=== PATIENT | female | born 1985 | race Asian ===

== ENCOUNTER 2020-11-25 09:12 | Inpatient (IN) | payer MEDICARE, MEDICAID ==
[~2020-11-25] VITALS: Ht 165.1 cm; Wt 86.2 kg
[2020-11-25 10:14] LABS: BASOPHILS % (AUTO) 0.9 % (0.0-2.0); HEMATOCRIT 33.7 % (36-46); HEMOGLOBIN 11.1 g/dL (12.0-16.0); LYMPHOCYTES # (AUTO) 3.1 K/uL (1.0-4.8); LYMPHOCYTES % (AUTO) 25.8 % (22.0-44.0); MEAN CORPUSCULAR HGB CONC 32.9 G/dL (31.0-37.0); MEAN CORPUSCULAR VOLUME 91 fL (80-100); MONOCYTES # (AUTO) 0.8 K/uL (0.1-1.0); MONOCYTES % (AUTO) 6.9 % (2.0-9.0); NEUTROPHILS # (AUTO) 6.8 K/uL (1.8-7.7); NEUTROPHILS % (AUTO) 56.4 % (40.0-70.0); PLATELET COUNT (AUTO) 362 K/uL (150-450); RED CELL DISTRIBUTION WIDTH 13.4 % (11.5-14.5)
[2020-11-25 10:41] LABS: ANION GAP 6 mmol/L (8-16); CARBON DIOXIDE 28 mmol/L (22-29); CHLORIDE 107 mmol/L (98-107); CREATININE 0.56 mg/dL (0.60-1.30); GLUCOSE,RANDOM 132 mg/dL (70-110); POTASSIUM 3.2 mmol/L (3.5-5.1); SODIUM SERUM 141 mmol/L (136-145); UREA NITROGEN, BLOOD 8 mg/dL (7-18)
[2020-11-25 10:44] LABS: ALANINE AMINOTRANSFERASE 18 U/L (12-78); ALBUMIN 2.9 g/dL (3.4-5.0); ALKALINE PHOSPHATASE 67 U/L (46-116); ASPARTATE AMINOTRANSFERASE 18 U/L (15-37); BILIRUBIN,TOTAL 0.2 mg/dL (0.1-1.0); GLOMERULAR FILTR. RATE CALC > 60 mL/min (>60); TOTAL PROTEIN, SERUM 7.2 g/dL (6.4-8.2)
[2020-11-25] MEDS ORDERED: POTASSIUM CHLORIDE 10% 40 MEQ/30 ML LIQUID UDCUP PO ONE (11:00)
[2020-11-25] MEDS ORDERED: ZOLPIDEM TARTRATE 10 MG TABLET PO PRN (12:15)
[2020-11-25] MEDS ORDERED: DiphenhydrAMINE HCL 50 MG/ML VIAL IM ONE (12:30)
[2020-11-25] MEDS ORDERED: IVERMECTIN 3 MG TABLET PO ONE (12:30)
[2020-11-25] MEDS ORDERED: HALOPERIDOL LACTATE 5 MG/ML VIAL IM ONE ×2 (12:30→15:30)
[2020-11-25] MEDS ORDERED: LORazepam 2 MG/ML VIAL IM ONE ×2 (12:30→15:30)
[2020-11-25 14:29] LABS: COVID AG,FIA SOURCE NASAL SWAB
[2020-11-25] MEDS ORDERED: PERMETHRIN 1% 60 ML LOTION TP ONE (15:30)
[2020-11-25] MEDS ORDERED: PERMETHRIN 5% 60 GM CREAM TP ONE (15:30)
[2020-11-26 01:41] LABS: CHOLESTEROL 121 mg/dL (131-200); HDL CHOLESTEROL 40 mg/dL (40-60); LDL CHOL (CALC.) 68 mg/dL (0-130); TRIGLYCERIDES 65 mg/dL (15-150)
[2020-11-26] MEDS: HALOPERIDOL 5 MG TABLET PO PRN (09:25)
[2020-11-26] MEDS: LORazepam 2 MG TABLET PO PRN (09:25)
[2020-11-26] MEDS ORDERED: PERMETHRIN 5% 60 GM CREAM TP ONE (14:15)
[2020-11-26] MEDS ORDERED: PERMETHRIN 1% 60 ML LOTION TP ONE (14:15)
[2020-11-26] MEDS ORDERED: HALOPERIDOL LACTATE 5 MG/ML VIAL IM ONE (14:15)
[2020-11-26] MEDS ORDERED: LORazepam 2 MG/ML VIAL IM ONE (14:15)
[2020-11-26] MEDS ORDERED: DiphenhydrAMINE HCL 50 MG/ML VIAL IM ONE (14:15)
[2020-11-26] MEDS ORDERED: ChlorproMAZINE HCL 50 MG/2 ML AMP IM ONE (16:00)
[2020-11-26 21:28] VITALS: BP 127/68
[2020-11-26] MEDS ORDERED: INFLUENZA VIRUS VACCINE QVS 2021-22 (6MO+)/PF 60 MCG/0.5 ML SYRINGE IM. ONE (21:45)
[2020-11-27] MEDS ORDERED: PETROLATUM,WHITE 28 GM JELLY TP PRN (06:45)
[2020-11-27] MEDS ORDERED: ONDANSETRON HCL 4 MG TABLET PO PRN (06:45)
[2020-11-27] MEDS ORDERED: MAG HYDROX/AL HYDROX/SIMETH ES 30 ML SUSPENSION UDCUP PO PRN (06:45)
[2020-11-27] MEDS ORDERED: ALBUTEROL SULFATE HFA 90 MCG/PUFF 8 GM INHALER IH PRN (06:45)
[2020-11-27] MEDS ORDERED: MAGNESIUM HYDROXIDE SUSPENSION 30 ML UDCUP PO PRN (06:45)
[2020-11-27] MEDS ORDERED: IBUPROFEN 400 MG TABLET PO PRN (06:45)
[2020-11-27] MEDS ORDERED: ACETAMINOPHEN 325 MG TABLET PO PRN (06:45)
[2020-11-27] MEDS ORDERED: GuaiFENesin/D-METHORPHAN [SUGAR-FREE] 200-20MG/10 ML SYRUP UDCUP PO PRN (06:45)
[2020-11-27] MEDS ORDERED: CloNIDine HCL 0.1 MG TABLET PO PRN (06:45)
[2020-11-27] MEDS ORDERED: LOPERAMIDE HCL 2 MG CAPSULE PO PRN (06:45)
[2020-11-27] MEDS ORDERED: DOCUSATE SODIUM 100 MG CAPSULE PO PRN (06:45)
[2020-11-27] MEDS ORDERED: NICOTINE 14 MG/24 HOUR PATCH TD PRN (06:45)
[2020-11-27] MEDS: LORazepam 2 MG TABLET PO PRN ×2 (10:10→16:49)
[2020-11-27] MEDS: HALOPERIDOL 5 MG TABLET PO PRN (10:10)
[2020-11-27] MEDS: OLANZapine 5 MG TABLET PO SCH ×2 (12:50→16:48)
[2020-11-28] MEDS: LORazepam 2 MG TABLET PO PRN ×3 (01:35→16:46)
[2020-11-28] MEDS: HALOPERIDOL 5 MG TABLET PO PRN ×3 (01:35→16:46)
[2020-11-28] MEDS: OLANZapine 5 MG TABLET PO SCH ×2 (08:27→16:46)
[2020-11-28 16:18] VITALS: BP 128/67
[2020-11-29 00:16] VITALS: BP 118/63
[2020-11-29] MEDS: LORazepam 2 MG TABLET PO PRN (08:22)
[2020-11-29] MEDS: OLANZapine 5 MG TABLET PO SCH (08:22)
[2020-11-29] MEDS: HALOPERIDOL 5 MG TABLET PO PRN (08:25)
[2020-11-29] MEDS: OLANZapine 10 MG TABLET PO SCH (17:06)
[2020-11-30 02:22] VITALS: BP 103/77
[2020-11-30 08:10] VITALS: BP 114/70
[2020-11-30 08:30] LABS: COVID AG,FIA SOURCE NASAL SWAB
[2020-11-30] MEDS: OLANZapine 10 MG TABLET PO SCH ×2 (08:59→16:24)
[2020-11-30] MEDS: LORazepam 2 MG TABLET PO PRN (10:03)
[2020-11-30] MEDS: HALOPERIDOL 5 MG TABLET PO PRN (10:03)
[2020-12-01 00:24] VITALS: BP 118/72
[2020-12-01] MEDS: OLANZapine 10 MG TABLET PO SCH ×3 (09:00→16:56)
[2020-12-01] MEDS: LORazepam 2 MG TABLET PO PRN (10:32)
[2020-12-01] MEDS: HALOPERIDOL 5 MG TABLET PO PRN (10:32)
[2020-12-02 00:02] VITALS: BP 110/66
[2020-12-02] MEDS: HALOPERIDOL 5 MG TABLET PO PRN ×3 (00:45→16:47)
[2020-12-02] MEDS: LORazepam 2 MG TABLET PO PRN ×3 (00:45→16:46)
[2020-12-02] MEDS: MULTIVITAMINS WITH IRON TABLET PO SCH (08:17)
[2020-12-02] MEDS: OLANZapine 10 MG TABLET PO SCH ×2 (08:17→16:46)
[2020-12-03 01:05] VITALS: BP 121/68
[2020-12-03] MEDS: OLANZapine 10 MG TABLET PO SCH ×2 (08:23→16:55)
[2020-12-03] MEDS: LORazepam 2 MG TABLET PO PRN ×2 (08:23→16:55)
[2020-12-03] MEDS: MULTIVITAMINS WITH IRON TABLET PO SCH (08:23)
[2020-12-03] MEDS: HALOPERIDOL 5 MG TABLET PO PRN (13:44)
[2020-12-04 00:31] VITALS: BP 119/72
[2020-12-04] MEDS: OLANZapine 10 MG TABLET PO SCH ×2 (08:17→16:06)
[2020-12-04] MEDS: MULTIVITAMINS WITH IRON TABLET PO SCH (08:17)
[2020-12-04 08:45] VITALS: BP 113/66
[2020-12-04] MEDS: LORazepam 2 MG TABLET PO PRN (09:52)
[2020-12-04] MEDS ORDERED: NICOTINE POLACRILEX 2 MG LOZENGE PO PRN (10:15)
[2020-12-05 02:16] VITALS: BP 130/72
[2020-12-05] MEDS: OLANZapine 10 MG TABLET PO SCH ×2 (08:49→16:20)
[2020-12-05] MEDS: MULTIVITAMINS WITH IRON TABLET PO SCH (08:49)
[2020-12-05] MEDS: LORazepam 2 MG TABLET PO PRN (08:49)
[2020-12-05 16:06] VITALS: BP 100/66
[2020-12-06 00:59] VITALS: BP 104/68
[2020-12-06 08:13] VITALS: BP 120/84
[2020-12-06] MEDS: OLANZapine 10 MG TABLET PO SCH ×2 (08:13→16:19)
[2020-12-06] MEDS: MULTIVITAMINS WITH IRON TABLET PO SCH (08:14)
[2020-12-06] MEDS: HALOPERIDOL 5 MG TABLET PO PRN (08:35)
[2020-12-06] MEDS: LORazepam 2 MG TABLET PO PRN (08:35)
[2020-12-07 01:22] VITALS: BP 114/76
[2020-12-07 08:03] LABS: COVID AG,FIA SOURCE NASAL SWAB
[2020-12-07] MEDS: OLANZapine 10 MG TABLET PO SCH ×2 (08:13→17:44)
[2020-12-07] MEDS: LORazepam 2 MG TABLET PO PRN (08:13)
[2020-12-07] MEDS: MULTIVITAMINS WITH IRON TABLET PO SCH (08:13)
[2020-12-07 08:31] VITALS: BP 118/71
[2020-12-07] MEDS: HALOPERIDOL 5 MG TABLET PO PRN (09:40)
[2020-12-07 16:01] VITALS: BP 154/81
[2020-12-08 01:05] VITALS: BP 116/66
[2020-12-08] MEDS: OLANZapine 10 MG TABLET PO SCH ×2 (09:07→16:15)
[2020-12-08] MEDS: MULTIVITAMINS WITH IRON TABLET PO SCH (09:07)
[2020-12-08] MEDS: LORazepam 2 MG TABLET PO PRN ×2 (09:07→16:15)
[2020-12-08] MEDS: HALOPERIDOL 5 MG TABLET PO PRN (16:15)
[2020-12-09 01:33] VITALS: BP 110/62
[2020-12-09 08:33] VITALS: BP 122/71
[2020-12-09] MEDS: LORazepam 2 MG TABLET PO PRN (08:58)
[2020-12-09] MEDS: OLANZapine 10 MG TABLET PO SCH ×2 (08:58→17:04)
[2020-12-09] MEDS: MULTIVITAMINS WITH IRON TABLET PO SCH (09:00)
[2020-12-09] MEDS: HALOPERIDOL 5 MG TABLET PO PRN (11:01)
[2020-12-09 16:02] VITALS: BP 121/76
[2020-12-10 00:26] VITALS: BP 116/70
[2020-12-10 07:27] LABS: CHOL/HDL RATIO 3.5 (3.9-5.7)
[2020-12-10] MEDS: MULTIVITAMINS WITH IRON TABLET PO SCH (08:09)
[2020-12-10] MEDS: OLANZapine 10 MG TABLET PO SCH ×2 (08:09→16:10)
[2020-12-10] MEDS: LORazepam 2 MG TABLET PO PRN ×2 (08:09→16:10)
[2020-12-10 08:29] VITALS: BP 112/63
[2020-12-10] MEDS: HALOPERIDOL 5 MG TABLET PO PRN ×2 (08:58→16:10)
[2020-12-10 16:12] VITALS: BP 128/79
[2020-12-11 00:21] VITALS: BP 118/72
[2020-12-11 08:18] VITALS: BP 110/66
[2020-12-11] MEDS: OLANZapine 10 MG TABLET PO SCH ×2 (08:32→16:02)
[2020-12-11] MEDS: MULTIVITAMINS WITH IRON TABLET PO SCH (08:32)
[2020-12-11] MEDS: LORazepam 2 MG TABLET PO PRN (09:06)
[2020-12-11] MEDS: HALOPERIDOL 5 MG TABLET PO PRN (09:37)
[2020-12-11 16:03] VITALS: BP 120/83
[2020-12-12 01:08] VITALS: BP 112/72
[2020-12-12 08:09] VITALS: BP 109/60
[2020-12-12] MEDS: MULTIVITAMINS WITH IRON TABLET PO SCH (09:40)
[2020-12-12] MEDS: OLANZapine 10 MG TABLET PO SCH ×2 (09:40→16:35)
[2020-12-12] MEDS: LORazepam 2 MG TABLET PO PRN (09:55)
[2020-12-12 16:06] VITALS: BP 109/66
[2020-12-13 01:40] VITALS: BP 114/78
[2020-12-13] MEDS: MULTIVITAMINS WITH IRON TABLET PO SCH (08:09)
[2020-12-13] MEDS: LORazepam 2 MG TABLET PO PRN ×2 (08:09→16:44)
[2020-12-13] MEDS: OLANZapine 10 MG TABLET PO SCH ×2 (08:09→16:44)
[2020-12-13 08:22] VITALS: BP 118/79
[2020-12-14 02:07] VITALS: BP 114/71
[2020-12-14 08:16] VITALS: BP 122/73
[2020-12-14] MEDS: MULTIVITAMINS WITH IRON TABLET PO SCH (08:19)
[2020-12-14] MEDS: OLANZapine 10 MG TABLET PO SCH ×2 (08:19→16:21)
[2020-12-14] MEDS: LORazepam 2 MG TABLET PO PRN (16:21)
[2020-12-14] MEDS: HALOPERIDOL 5 MG TABLET PO PRN (16:21)
[2020-12-15 01:00] VITALS: BP 122/64
[2020-12-15 08:15] VITALS: BP 116/63
[2020-12-15] MEDS: MULTIVITAMINS WITH IRON TABLET PO SCH (08:37)
[2020-12-15] MEDS: OLANZapine 10 MG TABLET PO SCH ×2 (08:37→17:02)
[2020-12-15] MEDS: LORazepam 2 MG TABLET PO PRN ×2 (13:57→18:28)
[2020-12-16 04:58] VITALS: BP 126/70
[2020-12-16] MEDS: MULTIVITAMINS WITH IRON TABLET PO SCH (08:44)
[2020-12-16] MEDS: OLANZapine 10 MG TABLET PO SCH ×2 (08:44→16:54)
[2020-12-16] MEDS: LORazepam 2 MG TABLET PO PRN (08:44)
[2020-12-16 10:18] VITALS: BP 115/66
[2020-12-16 16:10] VITALS: BP 121/69
[2020-12-17 03:45] VITALS: BP 120/70
[2020-12-17 08:13] VITALS: BP 110/65
[2020-12-17] MEDS: MULTIVITAMINS WITH IRON TABLET PO SCH (09:11)
[2020-12-17] MEDS: OLANZapine 10 MG TABLET PO SCH ×2 (09:11→16:48)
[2020-12-17] MEDS: LORazepam 2 MG TABLET PO PRN (13:05)
[2020-12-17 16:03] VITALS: BP 119/64
[2020-12-18 04:08] VITALS: BP 128/71
[2020-12-18 08:14] VITALS: BP 124/64
[2020-12-18] MEDS: OLANZapine 10 MG TABLET PO SCH ×2 (08:38→16:48)
[2020-12-18] MEDS: MULTIVITAMINS WITH IRON TABLET PO SCH (08:38)
[2020-12-18] MEDS: LORazepam 2 MG TABLET PO PRN ×2 (09:27→16:48)
[2020-12-18 16:12] VITALS: BP 139/88
[2020-12-19 02:01] VITALS: BP 122/76
[2020-12-19 08:06] VITALS: BP 120/69
[2020-12-19] MEDS: MULTIVITAMINS WITH IRON TABLET PO SCH (08:12)
[2020-12-19] MEDS: OLANZapine 10 MG TABLET PO SCH ×2 (08:12→16:28)
[2020-12-19] MEDS: LORazepam 2 MG TABLET PO PRN (09:01)
[2020-12-19 19:15] LABS: GLUCOMETER DEV NAME(LOC) POC.BV
[2020-12-20 02:05] VITALS: BP 114/64
[2020-12-20] MEDS ORDERED: OLAN10TA74 PO (07:48)
[2020-12-20] MEDS: MULTIVITAMINS WITH IRON TABLET PO SCH (08:04)
[2020-12-20] MEDS: OLANZapine 10 MG TABLET PO SCH (08:04)
[2020-12-20 08:17] VITALS: BP 122/76
== END 2020-12-20 10:20 | disposition home or self-care (01) | DRG 885 ==
LOC: EMS 09:12 → EDBD 11-26 07:22 → ICUN 11-26 07:22 → B3A 11-26 21:31
PROVIDERS: ADMIT Psychiatry & Neurology Child & Adolescent Psychiatry; ATTEND Psychiatry & Neurology Child & Adolescent Psychiatry
DX: F20.0 Paranoid schizophrenia (principal); G93.40 Encephalopathy, unspecified; F15.10 Other stimulant abuse, uncomplicated; E87.6 Hypokalemia; D72.829 Elevated white blood cell count, unspecified; B85.0 Pediculosis due to Pediculus humanus capitis; D64.9 Anemia, unspecified; L30.9 Dermatitis, unspecified; Z20.822 Contact with and (suspected) exposure to COVID-19; Z59.00 Homelessness unspecified; Z87.891 Personal history of nicotine dependence; Z91.19 Patient's noncompliance with other medical treatment and regimen; Z79.899 Other long term (current) drug therapy
CPT/HCPCS: 80053; 80061; 84132; 84703; 85025; 99291; G0480; J1200; J1630; J2060; J3230